=== PATIENT | female | born 1970 | race Caucasian/White ===

== ENCOUNTER 2018-06-17 09:54 | Emergency (ER) | payer BC ==
[2018-06-17] MEDS ORDERED: DIAZEPAM 5 MG TAB PO STA (10:31)
[2018-06-17] MEDS ORDERED: predniSONE 20 MG TAB PO STA (10:31)
[2018-06-17] MEDS ORDERED: IBUPROFEN 800 MG TAB PO STA (10:31)
[2018-06-17] MEDS ORDERED: HYDROmorphone 1 MG/ML 1 ML SYRINGE IM STA (10:31)
--- NOTE | 2018-06-17 11:22 | XR ---
EXAMINATION TYPE: XR chest 1V DATE OF EXAM: 06/17/2018 HISTORY: Pain. REFERENCE: NONE. FINDINGS: The lungs are clear. Pleural space are clear. Heart size is upper limits of normal. IMPRESSION: BORDERLINE CARDIOMEGALY.
--- NOTE | 2018-06-17 11:24 | XR ---
EXAMINATION TYPE: XR shoulder complete RT , 3 VIEWS DATE OF EXAM ORDERED: 06/17/2018 HISTORY: Pain. COMPARISON: None. FINDINGS: No fracture, dislocation or other acute osseous lesion is seen. IMPRESSION: NORMAL RIGHT SHOULDER.
--- NOTE | 2018-06-17 11:24 | XR ---
EXAMINATION TYPE: XR cervical spine comp , 6 VIEWS DATE OF EXAM ORDERED: 06/17/2018 HISTORY: Pain. COMPARISON: None. FINDINGS: There is a mild reversal of the normal cervical lordosis. Vertebral body height and alignment are maintained. No fractures are seen. There is minimal degenerat huma disc disease and hypertrophic spondylosis at C5-6. There is mild uncovertebral joint disease at t his level. Atlantoaxial relationships are normal. Intervertebral foramina are poorly visualized. IMPRESSION: 1. NO ACUTE OSSEOUS LESION. 2. MINIMAL DEGENERATIVE CHANGE.
--- NOTE | 2018-06-17 12:14 | ED ---
General Adult HPI - General Chief complaint: Back Pain/Injury Stated complaint: back pain Time Seen by Provider: 06/17/18 10:15 Source: patient, RN notes reviewed, old records reviewed Mode of arrival: wheelchair Limitations: no limitations - History of Present Illness Initial comments: This is a 48-year-old female the ER for evaluation. Patient complaining of worsening pain with shoulder neck and back upon movement. She denies any known specific injury. No fevers no cough congestion or shortness of breath. Again denies any trauma. No modifying factors for pain at home - Related Data Allergies Allergy/AdvReac Type Severity Reaction Status Date / Time cephalexin [From Keflex] Allergy Rash/Hives Verified 06/17/18 09:59 Review of Systems ROS Statement: Those systems with pertinent positive or pertinent negative responses have been documented in the HPI. ROS Other: All systems not noted in ROS Statement are negative. Past Medical History Past Medical History: Hyperlipidemia History of Any Multi-Drug Resistant Organisms: None Reported Past Surgical History: Tubal Ligation Past Psychological History: No Psychological Hx Reported Smoking Status: Current every day smoker Past Alcohol Use History: Occasional Past Drug Use History: None Reported General Exam Limitations: no limitations General appearance: alert, in no apparent distress Head exam: Present: atraumatic, normocephalic, normal inspection Eye exam: Present: normal appearance, PERRL, EOMI. Absent: scleral icterus, conjunctival injection, periorbital swelling ENT exam: Present: normal exam, mucous membranes moist Neck exam: Present: normal inspection. Absent: tenderness, meningismus, lymphadenopathy Respiratory exam: Present: normal lung sounds bilaterally. Absent: respiratory distress, wheezes, rales, rhonchi, stridor Cardiovascular Exam: Present: regular rate, normal rhythm, normal heart sounds. Absent: systolic murmur, diastolic murmur, rubs, gallop, clicks GI/Abdominal exam: Present: soft, normal bowel sounds. Absent: distended, tenderness, guarding, rebound, rigid Extremities exam: Present: normal inspection, full ROM, normal capillary refill. Absent: tenderness, pedal edema, joint swelling, calf tenderness Back exam: Present: normal inspection Neurological exam: Present: alert, oriented X3, CN II-XII intact Psychiatric exam: Present: normal affect, normal mood Skin exam: Present: warm, dry, intact, normal color. Absent: rash Course Vital Signs 06/17/18 06/17/18 09:55 12:21 Temperature 98.3 F 98.0 F Pulse Rate 83 76 Respiratory 20 16 Rate Blood Pressure 122/90 104/64 O2 Sat by Pulse 100 95 Oximetry Medical Decision Making - Medical Decision Making 48 female to ER acute on chronic chest and neck pain shoulder pain. No acute cause found. X-rays are negative. Patient can be discharged home - Radiology Data Radiology results: report reviewed (Chest x-ray neck x-ray shoulder x-ray negative for acute disease), image reviewed Disposition Clinical Impression: Mechanical back pain, Thoracic back pain, Right shoulder pain Disposition: HOME SELF-CARE Condition: Good Instructions: Acute Low Back Pain (ED), Chronic Back Pain (ED) Is patient prescribed a controlled substance at d/c from ED?: No Referrals: Vika Castillo MD [Primary Care Provider] - 1-2 days
[2018-06-17 12:22] VITALS: BP 104/64; PULSE 76; RESP 16; TEMP 98
== END 2018-06-17 12:51 | disposition home or self-care (01) ==
LOC: EC 09:54
DX: M54.6 Pain in thoracic spine (principal); M25.511 Pain in right shoulder; M54.2 Cervicalgia; G89.29 Other chronic pain; F17.200 Nicotine dependence, unspecified, uncomplicated; Z88.1 Allergy status to other antibiotic agents
CPT/HCPCS: 72050; 73030; 71045; 99284; 96372; J1170; J7512

== ENCOUNTER 2019-04-06 14:11 | Emergency (ER) | payer BC ==
[2019-04-06] MEDS ORDERED: KETOROLAC 60 MG/2 ML VIAL IM STA (15:24)
[2019-04-06] MEDS ORDERED: methylPREDNISolone SOD SUCCI 125 MG/2 ML VIAL IM ONE (15:24)
--- NOTE | 2019-04-06 15:28 | XR ---
EXAMINATION TYPE: XR cervical spine comp DATE OF EXAM: 04/06/2019 COMPARISON: 06/17/2018 HISTORY: Neck pain TECHNIQUE: 5 views FINDINGS: There is some straightening of the vertebra. Disc spaces are fairly normal. Posterior eleme nts are intact. Neural foramina are widely patent. Atlantoaxial facet joint is normal. IMPRESSION: Mild straightening. No fracture seen. No adverse change compared to old exam.
--- NOTE | 2019-04-06 16:01 | ED ---
Neck Injury/Pain HPI - General Chief Complaint: Neck Pain/Injury Stated Complaint: Rash/Neck pain Time Seen by Provider: 04/06/19 14:33 Mode of arrival: ambulatory Limitations: no limitations - History of Present Illness Initial Comments: Patient is a 49-year-old female complaining of neck and left shoulder pain 2 days. Patient states she's had this history going on for years but the last 2 days it has become severe. Patient admits to having a cervical MRI done last year and admits to severe DJD. Patient is also complaining of an ongoing rash that is on her neck and both arms. She admits the rash has been on and off for years and has an appointment with a sewing machine maintenance mechanic specialist at [facility] next month. She recently came off a course of steroids. Patient is more concerned with the pain in her neck today. She is having trouble walking and laying down. Patient denies chest pain, shortness of breath, abdominal pain, headache. No other complaints at this time. Patient denies any trauma or falls. - Related Data Allergies Allergy/AdvReac Type Severity Reaction Status Date / Time cephalexin [From Keflex] Allergy Rash/Hives Verified 04/06/19 14:30 Review of Systems ROS Statement: Those systems with pertinent positive or pertinent negative responses have been documented in the HPI. ROS Other: All systems not noted in ROS Statement are negative. Past Medical History Past Medical History: Hyperlipidemia Additional Past Medical History / Comment(s): RASH, LUPUS, DDD, C5/C6 ISSUE History of Any Multi-Drug Resistant Organisms: None Reported Past Surgical History: Tubal Ligation Past Psychological History: No Psychological Hx Reported Smoking Status: Former smoker Past Alcohol Use History: Occasional Past Drug Use History: None Reported General Exam - General Exam Comments Initial Comments: GENERAL: Well-appearing, well-nourished and in no acute distress, but appears to be in pain. HEAD: Atraumatic, normocephalic. EYES: Pupils equal round and reactive to light, extraocular movements intact, sclera anicteric, conjunctiva are normal. ENT: TMs normal, nares patent, oropharynx clear without exudates. Moist mucous membranes. NECK: Supple without lymphadenopathy or JVD. Patient is tender over cervical spine and associated upper trap muscles. Decreased range of motion and pain with range of motion. LUNGS: Breath sounds clear to auscultation bilaterally and equal. No wheezes rales or rhonchi. HEART: Regular rate and rhythm without murmurs, rubs or gallops. ABDOMEN: Soft, nontender, normoactive bowel sounds. No guarding, no rebound. No masses appreciated. : Deferred EXTREMITIES: Normal range of motion, no pitting or edema. No clubbing or cyanosis. NEUROLOGICAL: Cranial nerves II through XII grossly intact. Normal speech, normal gait. PSYCH: Normal mood, normal affect. SKIN: Warm, Dry, normal turgor, no rashes or lesions noted. Limitations: no limitations Course Vital Signs 04/06/19 04/06/19 14:23 16:48 Temperature 98.6 F 97.9 F Pulse Rate 89 76 Respiratory 18 16 Rate Blood Pressure 126/79 136/80 O2 Sat by Pulse 97 99 Oximetry Medical Decision Making - Medical Decision Making Patient is a 49-year-old female here for neck pain that has been ongoing for months. The neck pain became more severe last few days it's what she is here. She also has a rash that on her neck and in both arms. She is set to see a sewing machine maintenance mechanic [facility] for this issue as this also has been ongoing for years. Her main concern today was her neck pain. X-rays showed no acute fractures or dislocations. Patient was given steroids and Toradol for the pain. She will follow-up with orthopedics. Patient was discharged home. Disposition Clinical Impression: Cervical radiculopathy, Dermatitis Disposition: HOME SELF-CARE Condition: Stable Instructions (If sedation given, give patient instructions): Cervical Radiculopathy (ED), Neck Pain (ED) Additional Instructions: Please return to the Emergency Department if symptoms worsen or any other concerns. Is patient prescribed a controlled substance at d/c from ED?: No Referrals: Vika Castillo MD [Primary Care Provider] - 1-2 days Tico Cortes DO [REFERRING] - 1-2 days
[2019-04-06] MEDS ORDERED: ACET/COD 300 MG/30 MG STARTER PACK 6 TAB BTL PO STA (16:36)
[2019-04-06 16:50] VITALS: BP 136/80; PULSE 76; RESP 16; TEMP 97.9
== END 2019-04-06 16:48 | disposition home or self-care (01) ==
LOC: EC 14:11
DX: M54.12 Radiculopathy, cervical region (principal); L30.9 Dermatitis, unspecified; Z88.1 Allergy status to other antibiotic agents; Z87.891 Personal history of nicotine dependence
CPT/HCPCS: 72050; 99283; 96372 ×2; J2930; J1885